=== PATIENT | male | born 1990 | race Caucasian/White ===

== ENCOUNTER → 2018-12-25 | Outpatient (REF) | payer OTHER | LOC: M SFHCLERA 09:54 | PROVIDERS: ATTEND Physician Assistant | DX: J02.9 Acute pharyngitis, unspecified (principal) ==

== ENCOUNTER → 2024-06-02 | Outpatient (REF) | LOC: M PLALAB 13:21 | PROVIDERS: ATTEND Nurse Practitioner Family | DX: M25.562 Pain in left knee (principal); M25.561 Pain in right knee; M54.2 Cervicalgia ==